=== PATIENT | female | born 2000 | race Caucasian/White ===

== ENCOUNTER 2022-03-14 20:51 | Emergency (ER) | payer OTHER, SELFPAY ==
[2022-03-14 21:17] VITALS: BP 128/80; PULSE 84; RESP 18; TEMP 36.9; O2SAT 99; BMI 21.0
--- NOTE | 2022-03-14 21:25 | ED.EAR ---
HPI - Ear Problem General Chief complaint: Ear/Nose/Throat Problem Stated complaint: Ear Infection Time Seen by Provider: 03/14/22 21:07 History of Present Illness HPI Narrative: This 21-year-old comes in reporting pain in her right ear for the past 5 days. She does not report any cough, fever, sore throat, or nasal congestion. She states that it hurt for a couple days and then seemed normal on the 3rd day. These last 2 days her pain is resumed. She does report some decreased hearing on that right side but does not have any vertigo symptoms. She did go to urgent care yesterday and was told that there looked like there was fluid behind the ear but no sign of infection. Related Data Home Medications Medication Instructions Recorded Confirmed escitalopram oxalate 10 mg tablet 10 mg PO DAILY 03/14/22 03/14/22 Previous Rx's Medication Instructions Recorded methylprednisolone 4 mg tablets in See Rx Instructions PO .COMPLEX 03/14/22 a dose pack (Medrol (Zeke)) #21 ea Allergies Allergy/AdvReac Type Severity Reaction Status Date / Time No Known Drug Allergies Allergy Verified 03/14/22 21:21 Review of Systems Status of ROS: Reports: 10 or more systems reviewed and unremarkable except as noted in History and below Narrative: Constitutional: No fevers, no weight gain or loss. Eyes: No discharge. No vision changes. HENT: No congestion, no sore throat. Right-sided ear pain as described above. Cardiovascular: No chest pain, no palpitations. Respiratory: No shortness of breath, no wheezes, no cough. Gastrointestinal: No abdominal pain, no vomiting, no diarrhea. Genitourinary: No dysuria, no hematuria. Musculoskeletal: Normal range of motion. Skin: No rashes, no pruritis. Neurological: No dizziness, weakness, sensory change, speech change. Endo/Heme/Allergies: No bruising or bleeding. No polydipsia. Pysch: no suicidality, no anxiety, no insomnia. All other systems reviewed and are negative. Exam Narrative: Exam Narrative: Constitutional: Well-developed, well-nourished, no acute distress. HEENT: Normocephalic, atraumatic. Tympanic membranes are visualized bilaterally in showed no sign of infection or abnormality. The right tympanic membrane does not seem to reflect light typically. Neck: Normal range of motion. Nontender. Supple. Heart: Intact distal pulses. Lungs: No chest discomfort. No wheezes, rhonchi, or rales. Abdomen: Nontender. Back: Normal range of motion. Extremities: Normal range of motion. No injury. Skin: Intact. No rash. Warm. No erythema or pallor. Neurologic: No altered sensation. No weakness. Alert and oriented. Psychiatric: No suicidality. No anxiety or depression. No insomnia. Nursing notes and vitals signs are reviewed. Const: Vital Signs, click to edit/add: Vital Signs - 24 hr 03/14/22 21:17 Temperature 98.5 F Pulse Rate [Right Pulse Oximeter] 84 Respiratory Rate 18 Blood Pressure [Le ft Upper Arm] 128/80 Pulse Oximetry 99 Oxygen Delivery Me thod Room Air Course Vital Signs Vital signs: Initial Vital Signs Temperature 98.5 F 03/14/22 21:17 Temperature Source Temporal Artery Scan 03/14/22 21:17 Pulse Rate 84 03/14/22 21:17 Respiratory Rate 18 03/14/22 21:17 Blood Pressure 128/80 03/14/22 21:17 Blood Pressure Mean 96 03/14/22 21:17 Blood Pressure Position Sitting 03/14/22 21:17 Pulse Oximetry 99 03/14/22 21:17 Oxygen Delivery Method 03/14/22 21:17 Vital Signs Temperature 98.5 F 03/14/22 21:17 Pulse Rate 84 03/14/22 21:17 Respiratory Rate 18 03/14/22 21:17 Blood Pressure 128/80 03/14/22 21:17 Pulse Oximetry 99 03/14/22 21:17 Oxygen Delivery Method 03/14/22 21:17 Temperature 98.5 F 03/14/22 21:17 Pulse Rate 84 03/14/22 21:17 Respiratory Rate 18 03/14/22 21:17 Blood Pressure 128/80 03/14/22 21:17 Pulse Oximetry 99 03/14/22 21:17 Oxygen Delivery Method 03/14/22 21:17 Medical Decision Making MDM Narrative Medical decision making narrative: This patient comes in with right ear pain. On exam her here appears rather normal. There is no obvious sign of infection. She may be having symptoms of eustachian tube dysfunction with some associated decreased hearing on the right side. I instructed her regarding some maneuvers that could potentially help to equalize pressure if this happens to be a problem. She did receive an oral dose of dexamethasone and a prescription for Medrol Dosepak. I also provided a prescription for Toradol. I advised her to follow[facility]up with [facility] if symptoms are persistent. Discharge Plan Discharge Clinical Impression: Otalgia of right ear Patient Disposition: Home, Self-Care Condition: Stable Additional Instructions: Take medication as prescribed. Follow-up with [facility] if not improving. Prescriptions: New methylprednisolone [Medrol (Zeke)] 4 mg tablets,dose pack See Rx Instructions .ROUTE .COMPLEX Qty: 21 0RF Rx Instructions: orally per package directions No Action escitalopram oxalate 10 mg tablet 10 mg PO DAILY Stand Alone Forms: [employer] Info Instructions
[2022-03-14 21:40] VITALS: BP 128/80; PULSE 84; RESP 18; TEMP 36.9
[2022-03-14] MEDS: dexAMETHasone 10 MG/ML inj PO (21:43)
--- NOTE | 2022-03-15 13:10 | ED.NURSE ---
Pt called to ask if rx had been sent to pharmacy. Rx was sent to [facility] in [place]. Pt notified.
== END 2022-03-14 21:41 | disposition home or self-care (01) ==
LOC: ED 21:36
PROVIDERS: Emergency Provider Emergency Medicine Emergency Medical Services
DX: H92.01 Otalgia, right ear (principal)
CPT/HCPCS: 99283; J1100